=== PATIENT | female | born 1995 | race Caucasian/White ===

== ENCOUNTER → 2016-06-22 | Outpatient (CLI) | payer OTHER | LOC: FIMAGING 14:34 | PROVIDERS: ATTEND Nurse Practitioner Women's Health | DX: N63 Unspecified lump in breast (principal) ==

== ENCOUNTER 2018-04-10 11:55 | Inpatient (IN) | payer OTHER ==
[2018-04-10] MEDS ORDERED: MISOPROSTOL 200 MCG TAB PR PRN (12:37)
[2018-04-10] MEDS ORDERED: TERBUTALINE SULFATE 1 MG/ML VIAL IV PRN (12:37)
[2018-04-10] MEDS ORDERED: OXYTOCIN/RINGERS LACTATE 1,000 ML IV PRN (12:37)
[2018-04-10] MEDS ORDERED: OLIVE OIL 118 ML BTL MISC PRN (12:37)
[2018-04-10] MEDS ORDERED: LR 1,000 ML IV PRN (12:37)
[2018-04-10] MEDS ORDERED: LIDOCAINE 1% 300 MG/30 ML SDV SC PRN (12:37)
[2018-04-10] MEDS ORDERED: EPSOM SALT 454 GM TP PRN (12:37)
[2018-04-10] MEDS ORDERED: IBUPROFEN 600 MG TAB PO PRN (12:37)
[2018-04-10 14:29] LABS: PLATELET COUNT 96 10^3/uL (150-400)
[2018-04-10 14:36] LABS: PLATELET COUNT 96 10^3/uL (150-400)
[2018-04-10] MEDS ORDERED: CALCIUM GLUC 10% 1 GM/10 ML VIAL IVP PRN (14:37)
[2018-04-10] MEDS ORDERED: MAGNESIUM SULF 4 GM/WATER 100 ML IV ONE (14:37)
[2018-04-10] MEDS: hydrALAZINE 20 MG/ML VIAL IVP PRN ×2 (14:55→17:25)
[2018-04-10] MEDS ORDERED: Mag Sulf 500 ML IV SCH (15:00)
[2018-04-10] MEDS ORDERED: LR 500 ML IV PRN (15:01)
[2018-04-10] MEDS ORDERED: OXYTOCIN/RINGERS LACTATE 500 ML IV SCH (15:30)
[2018-04-10 16:56] LABS: PLATELET COUNT 102 10^3/uL (150-400)
[2018-04-10] MEDS ORDERED: LIDOCAINE 1% 300 MG/30 ML SDV ONE (19:16)
[2018-04-10] MEDS ORDERED: OLIVE OIL 118 ML BTL ONE (19:16)
[2018-04-10] MEDS ORDERED: OXYTOCIN 10 UNIT/ML VIAL ONE (19:17)
[2018-04-10] MEDS ORDERED: MISOPROSTOL 200 MCG TAB ONE (19:17)
[2018-04-10] MEDS ORDERED: TERBUTALINE SULFATE 1 MG/ML VIAL ONE (19:17)
--- NOTE | 2018-04-10 20:44 | PREANESOB ---
Obstetric Pre-Anesthesia Info - General Info NPO Start Time: 10:30 : 1 Para: 0 JUAN MANUEL: [birth year] Gestational Age: 39 week(s) and 0 day(s) - Info Status: Full Term - Labor Status Magnesium Sulfate in Use: Yes Labor Epidural: Proposed Anesthesia Allergies/Adverse Reactions: Allergy/AdvReac Type Severity Reaction Status Date / Time No Known Allergies Allergy Unverified 04/10/18 15:00 Visit Medications: Generic Name Dose Route Start Last Admin Trade Name Freq PRN Reason Stop Dose Admin Calcium Gluconate 1 gm 04/10/18 14:37 Calcium Gluconate IVP 10/07/18 14:36 PRN PRN Magnesium Toxicity Hydralazine HCl 5 mg 04/10/18 14:35 04/10/18 17:25 Apresoline IVP 10/07/18 14:34 5 mg Q6HRS PRN Administration SBP Greater Than 160 Lactated Ringer's 1,000 mls @ 0 mls/hr 04/10/18 12:37 04/10/18 15:22 Lr IV 04/11/18 12:36 1,000 mls PRN PRN Administration SEE PROTOCOL CONDITIONS Protocol Per Protocol Oxytocin/Lactated Ringer's 1,000 mls @ 125 mls/hr 04/10/18 12:37 Pitocin 20 Units/Lr (Premix) IV PRN PRN Post bleeding Lactated Ringer's 500 mls @ 500 mls/hr 04/10/18 15:01 Lr IV 04/11/18 15:01 PRN PRN Maternal Hypotension Magnesium Sulfate 500 mls @ 50 mls/hr 04/10/18 15:00 04/10/18 16:01 Magnesium Sulfate 20 Gm/ 500 Ml (Premix) IV 10/07/18 14:59 500 mls CONT DIANA Administration Oxytocin/Lactated Ringer's 500 mls @ 0 mls/hr 04/10/18 15:30 04/10/18 17:39 Pitocin 30 Units/Lr (Premix) IV 10/07/18 15:29 500 mls CONT DIANA Administration Protocol Per Protocol Ibuprofen 600 mg 04/10/18 12:37 Motrin PO ONCE PRN post , pain Lidocaine HCl 300 mg 04/10/18 12:37 Lidocaine Hcl 1% SC 10/07/18 12:36 ONCE PRN episiotomy Magnesium Sulfate 454 gm 04/10/18 12:37 Epsom Salt TP 10/07/18 12:36 Q1H PRN perineal discomfort Misoprostol 800 - 1,000 mcg 04/10/18 12:37 Cytotec NV ONCE PRN Vaginal Atony/Bleeding [place] Oil 118 ml 04/10/18 12:37 Sweet Oil MISC 10/07/18 12:36 ONCE PRN perineal massage Terbutaline Sulfate 0.25 mg 04/10/18 12:37 Brethine IV 10/07/18 12:36 ONCE PRN Tachysystole Discontinued Medications Generic Name Dose Route Start Last Admin Trade Name Andreaq PRN Reason Stop Dose Admin Magnesium Sulfate 100 mls @ 200 mls/hr 04/10/18 14:37 04/10/18 15:22 Magnesium Sulf 4 Gm (Premix) IV 04/10/18 15:06 100 mls ONCE ONE Administration Lidocaine HCl Confirm 04/10/18 19:16 Lidocaine Hcl 1% Administered 04/10/18 19:17 Dose 300 mg .ROUTE .STK-MED ONE Misoprostol Confirm 04/10/18 19:17 Cytotec Administered 04/10/18 19:18 Dose 1,000 mcg .ROUTE .STK-MED ONE [place] Oil Confirm 04/10/18 19:16 Sweet Oil Administered 04/10/18 19:17 Dose 118 ml .ROUTE .STK-MED ONE Oxytocin Confirm 04/10/18 19:17 Pitocin Administered 04/10/18 19:18 Dose 40 unit .ROUTE .STK-MED ONE Terbutaline Sulfate Confirm 04/10/18 19:17 Brethine Administered 04/10/18 19:18 Dose 1 mg .ROUTE .STK-MED ONE - Anesthesia History Response to Local Anesthetics: Not Applicable, Normal Anesthesia & Operative History: No Prior Problems - Vital Signs Latest Vital Signs (Nursing): Temp Pulse Resp BP Pulse Ox 173/102 H 04/10/18 17:25 Height/Weight (Nursing): Height 165.1 cm Weight 68.492 kg - Focused Exam Neck exam: FROM Mallampati Score: Class 2 Mouth exam: normal dental/mouth exam Pulmonary: no respiratory distress Cardiovascular: regular rate and rhythym Labs: 04/10/18 16:40 04/10/18 16:40 Patient ABO/Rh O POSITIVE 04/10/18 13:35 Uric Acid 5.4 mg/dL (2.5-6.8) 04/10/18 16:40 Total Bilirubin 0.2 mg/dL (0.1-1.4) 04/10/18 13:35 Conjugated Bilirubin 0.1 mg/dL (0.0-0.5) 04/10/18 13:35 Unconjugated Bilirubin 0.1 mg/dL (0.0-1.1) 04/10/18 13:35 AST 34 IU/L (14-46) 04/10/18 16:40 ALT 36 IU/L (9-52) 04/10/18 16:40 Lactate Dehydrogenase 570 IU/L (313-618) 04/10/18 16:40 - Plan Anesthetic Plan: ADRIÁN Consent Signed and on Chart: Yes Patient/Guardian Understands and Agrees to Plan: Yes
[2018-04-10 20:46] LABS: PLATELET COUNT 100 10^3/uL (150-400)
[2018-04-10] MEDS ORDERED: PHENYLEPHRINE HCL 100 MCG/ML SYR ONE (20:49)
[2018-04-10] MEDS ORDERED: BUPIVACAINE 0.25% 10 ML SDV ONE (20:49)
[2018-04-10] MEDS ORDERED: PHENYLEPHRINE HCL 100 MCG/ML SYR IVP PRN (21:36)
[2018-04-10] MEDS ORDERED: METOCLOPRAMIDE 10 MG/2 ML VIAL IVP PRN (21:36)
[2018-04-10] MEDS ORDERED: NALOXONE HCL 0.4 MG/ML INJ IVP PRN (21:36)
[2018-04-10] MEDS ORDERED: ONDANSETRON 4 MG/2 ML VIAL IVP PRN (21:36)
[2018-04-10] MEDS ORDERED: fentaNYL 2MCG/ML/BUP 0.1% RTU 100 ML EP SCH (22:00)
[2018-04-10] MEDS ORDERED: LR 500 ML IV SCH (22:00)
--- NOTE | 2018-04-11 00:18 | OBPROG ---
Labor Progress Note Assessment/Plan: Assessment: IUP [id number] preeclampsia with severe features UOP borderline but clear plts stable, other LFTs normal ADRIÁN with good pain control, difficult with ADRIÁN placement with hypotension/ N/V Plan: Cont pitocin and now ROM 23:46, slow change to 3/90/-2 04/11/18 00:04 Subjective/Intrapartum Course: 04/11/18 00:18 Pt doing ok - relatively comf with ADRIÁN....Got ADRIÁN for urethral irritation. Had very difficult insertion with terrible pain even with lidocaine injection - got hypotension and emesis. resting now. has mild MCCRAY and just had nausea and emesis. hot with magnesium. happy about plts. Objective: 04/10/18 20:43 04/10/18 20:43 Patient ABO/Rh O POSITIVE 04/10/18 13:35 Uric Acid 5.6 mg/dL (2.5-6.8) 04/10/18 20:43 Total Bilirubin 0.2 mg/dL (0.1-1.4) 04/10/18 13:35 Conjugated Bilirubin 0.1 mg/dL (0.0-0.5) 04/10/18 13:35 Unconjugated Bilirubin 0.1 mg/dL (0.0-1.1) 04/10/18 13:35 AST 36 IU/L (14-46) 04/10/18 20:43 ALT 37 IU/L (9-52) 04/10/18 20:43 Lactate Dehydrogenase 560 IU/L (313-618) 04/10/18 20:43 Temp Pulse Resp BP Pulse Ox 173/102 H 04/10/18 17:25 - SVE Dilation (cm): 3 Effacement (%): 90 Station: -2 Membranes: AROM (at 23:46) Amniotic Fluid Color: Clear - Contraction Pattern Assessment Current Contraction Pattern: Regular (q 3-4 min on pit 14 mu/min) - FHR Assessment [place] FHR (bpm): 120 FHR Pattern Variability: Moderate FHR Category: 1 - Procedures Non-surgical Procedures: Amniotomy - AP Antepartum Course: 04/11/18 00:29 uncomplicated until 04/07 with borderline b/p elevation with labs normal except plts 106 - Physical Exam General Appearance: WD/WN, no apparent distress Abdomen: non-tender Extremities: non-tender, pedal edema (minimal) Skin: normal color, warm/dry Neuro/Psych: no motor/sensory deficits, alert Oxytocin Orders Assessment - Pre-Induction/Augmentation Assessment Gestational Age: 39 week(s) and 0 day(s) ICD10 Worksheet Patient Problems: Problems Problem Status Onset Pre-eclampsia, severe Acute
[2018-04-11 01:12] LABS: PLATELET COUNT 107 10^3/uL (150-400)
--- NOTE | 2018-04-11 03:02 | OBPROG ---
Labor Progress Note Assessment/Plan: Assessment: IUP [id number] preeclampsia with severe features, BP up to 170s/100s, now 140s/90s UOP normal plts stable, other LFTs normal - UA 5.9 ADRIÁN with fair pain control - will do several boluses AROM, clear fluid, GBS- Plan: Cont pitocin, cx with slow change in latent labor 04/11/18 00:04 04/11/18 02:58 Subjective/Intrapartum Course: 04/11/18 00:18 Pt doing ok - relatively comf with ADRIÁN....Got ADRIÁN for urethral irritation. Had very difficult insertion with terrible pain even with lidocaine injection - got hypotension and emesis. resting now. has mild MCCRAY and just had nausea and emesis. hot with magnesium. happy about plts. 04/11/18 03:00 Pt uncomfortable with feeling more pressure. Irritated by many body symptoms / catheter/ pulse ox etc. Will push bolus button. denies MCCRAY, nausea after lying for exam. cx now 3-4/95/0 station. nieves bulb pushed above head Objective: 04/11/18 00:45 04/11/18 00:45 Patient ABO/Rh O POSITIVE 04/10/18 13:35 Uric Acid 5.9 mg/dL (2.5-6.8) 04/11/18 00:45 Total Bilirubin 0.3 mg/dL (0.1-1.4) 04/11/18 00:45 Conjugated Bilirubin 0.2 mg/dL (0.0-0.5) 04/11/18 00:45 Unconjugated Bilirubin 0.1 mg/dL (0.0-1.1) 04/11/18 00:45 AST 38 IU/L (14-46) 04/11/18 00:45 ALT 38 IU/L (9-52) 04/11/18 00:45 Lactate Dehydrogenase 588 IU/L (313-618) 04/11/18 00:45 Temp Pulse Resp BP Pulse Ox 173/102 H 04/10/18 17:25 - SVE Dilation (cm): 3 Effacement (%): 100 Station: 0 Membranes: AROM (at 23:46) Amniotic Fluid Color: Clear - Contraction Pattern Assessment Current Contraction Pattern: Regular (q 3-4 min on pit 18 mu/min) - FHR Assessment [place] FHR (bpm): 120 FHR Pattern Variability: Moderate FHR Category: 1 - Procedures Non-surgical Procedures: Amniotomy - AP Antepartum Course: 04/11/18 00:29 uncomplicated until 04/07 with borderline b/p elevation with labs normal except plts 106 Oxytocin Orders Assessment - Pre-Induction/Augmentation Assessment Gestational Age: 39 week(s) and 0 day(s) ICD10 Worksheet Patient Problems: Problems Problem Status Onset Pre-eclampsia, severe Acute
--- NOTE | 2018-04-11 06:11 | OBPROG ---
Labor Progress Note Assessment/Plan: Assessment: IUP [id number] preeclampsia with severe features, BP up to 170s/100s, now 120s-140s/80s-90s UOP normal plts stable, other LFTs normal - UA 5.9 -LAB DRAW NOW ADRIÁN with fair pain control AROM, clear fluid, GBS- IUPC placed - on pit - ctxns inadeq Plan: Cont pitocin, cx with slow change in latent labor, now 3-4/100/0 04/11/18 00:04 04/11/18 02:58 04/11/18 06:05 Subjective/Intrapartum Course: 04/11/18 00:18 Pt doing ok - relatively comf with ADRIÁN....Got ADRIÁN for urethral irritation. Had very difficult insertion with terrible pain even with lidocaine injection - got hypotension and emesis. resting now. has mild MCCRAY and just had nausea and emesis. hot with magnesium. happy about plts. 04/11/18 03:00 Pt uncomfortable with feeling more pressure. Irritated by many body symptoms / catheter/ pulse ox etc. Will push bolus button. denies MCCRAY, nausea after lying for exam. cx now 3-4/95/0 station. nieves bulb pushed above head 04/11/18 06:07 Pt doing ok - sleeping after Zofran and ADRIÁN boluses. Ctxns hard to monitor on 22 pit - placed IUPC - ctxns inadeq. Cx minimal change 3-4/100/0. fluid still clear fluid. good UOP, no MCCRAY Objective: 04/11/18 00:45 04/11/18 00:45 Patient ABO/Rh O POSITIVE 04/10/18 13:35 Uric Acid 5.9 mg/dL (2.5-6.8) 04/11/18 00:45 Total Bilirubin 0.3 mg/dL (0.1-1.4) 04/11/18 00:45 Conjugated Bilirubin 0.2 mg/dL (0.0-0.5) 04/11/18 00:45 Unconjugated Bilirubin 0.1 mg/dL (0.0-1.1) 04/11/18 00:45 AST 38 IU/L (14-46) 04/11/18 00:45 ALT 38 IU/L (9-52) 04/11/18 00:45 Lactate Dehydrogenase 588 IU/L (313-618) 04/11/18 00:45 Temp Pulse Resp BP Pulse Ox 173/102 H 04/10/18 17:25 - SVE Dilation (cm): 3 (3-4) Effacement (%): 100 Station: 0 Membranes: AROM (at 23:46) Amniotic Fluid Color: Clear - Contraction Pattern Assessment Current Contraction Pattern: Regular (q 4 min on 22 mu/min pit) - FHR Assessment [place] FHR (bpm): 120 FHR Pattern Variability: Moderate FHR Category: 1 - Procedures Non-surgical Procedures: Amniotomy - AP Antepartum Course: 04/11/18 00:29 uncomplicated until 04/07 with borderline b/p elevation with labs normal except plts 106 Oxytocin Orders Assessment - Pre-Induction/Augmentation Assessment Gestational Age: 39 week(s) and 0 day(s) ICD10 Worksheet Patient Problems: Problems Problem Status Onset Pre-eclampsia, severe Acute
[2018-04-11 06:32] LABS: PLATELET COUNT 120 10^3/uL (150-400)
--- NOTE | 2018-04-11 07:24 | GHP ---
DATE OF ADMISSION: 04/10/2018 The patient was seen and approximately 45 minutes was spent in evaluation of the patient and discussion of management late in the morning on 04/10/18 HISTORY: Upon presentation, the patient is a 22-year-old, G1, P0, at 39 weeks' gestation with an estimated due date of 04/17, established by a 7 week ultrasound as periods were irregular after discontinuing Depo-Provera. The patient was seen at the office on the for followup of blood pressures and was noted to have blood pressures in the 130s over 80s with 3+ proteinuria. This patient was sent to Labor and Delivery for evaluation. Upon labor and Delivery, the blood pressures were markedly higher in the 150s to 170s range over 90s to 105. The patient was denying a headache or nausea and vomiting, but had noticed that she was a little more puffy on the day prior to admission and had slept in her support stockings. The patient had previously been seen at [facility] on 04/07 at which time her blood pressure was 124/88 and she had 2+ proteinuria at that time. A [facility] lab panel was performed then and was normal except for platelet levels that were 106,000. Upon initial presentation, the patient had laboratory values that were done and the platelet level had dropped to 96,000. Other lab testing was normal except for the PDC ratio was 2.6. Uric acid was 5.6. In light of the elevated blood pressures and proteinuria with thrombocytopenia, the patient was advised that she was preeclamptic with severe features and needed to be managed with magnesium sulfate and induced. monitoring was reassuring with category 1 tracing. The patient was thoroughly counseled about the risk of what we were finding with preeclampsia and the need to control blood pressures and proceed with delivery. She asked appropriate questions and symptoms were discussed to expect on the magnesium. CURRENT HISTORY: The patient has been followed with [facility] since first trimester. Dating was established by a 7 week ultrasound. The patient had a relatively low risk until 04/07. 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 The patient was having really bad migraines in mid February and she was evaluated at [facility]. Her blood pressure was 104/62, and she had evaluation with heart tones and was reassured. She was advised to increase her fluid intake. The patient was not noticing edema at that time. OBSTETRIC LABS: Maternal blood type O positive with negative antibody screen. RPR nonreactive. Rubella immune. Hepatitis B surface antigen negative. HIV negative. Cystic fibrosis, SMA, fragile X all negative. Thyroid testing all negative. Varicella titers were immune. Parvovirus showed nonimmune. Urinalysis and culture were negative. Verifi testing was negative with negative MSAFP. 1-hour Glucola was normal. Hematocrit revealed anemia at 31% at 28 weeks and the patient has been on iron. GBS culture was negative. PAST MEDICAL HISTORY: Negative except for migraines. PAST SURGICAL HISTORY: Left breast lumpectomy in September of 2016 which was benign. Odontectomy in 2011. In August of 2016, tonsils removed. PAST OBSTETRIC HISTORY: Negative. ALLERGIES: The patient has no known drug allergies. CURRENT MEDICATIONS: Only vitamins and iron. SOCIAL HISTORY: The patient does report smoking in the past and social alcohol , which she stopped with the positive test. The patient also reported marijuana in the past and last used on July 28, 2017. Patient is and lives with her , Reynaldo. PHYSICAL EXAM: The patient is a well-developed, well-nourished, white female, in no physical distress upon admission. The patient is quiet but seems to understand what she is being educated about preeclampsia. The patient's vital signs as noted above range 150s up to 170s over 90s to 107. The patient is given hydralazine IV to bring blood pressures down as well as starting the magnesium sulfate. PHYSICAL EXAMINATION: VITALS: The patient is afebrile. LUNGS: Clear to auscultation bilaterally. CARDIOVASCULAR: Regular rate and rhythm. heart tones revealed a category 1 tracing with a baseline in the 120s, good variability and accelerations. No decelerations noted. Contractions were noted initially every 4-5 minutes, but the patient was not able to feel these at all. EXTREMITIES: Only mild edema, but has on compression stockings. DTRs 1 to 2+ in the lower extremities. No clonus noted. BIOLOGY INTERN: Pelvic exam performed and the cervix initially was 1-2 cm dilated, 90% effaced, at -2 station. ASSESSMENT: Intrauterine at 39 weeks with preeclampsia with severe features with hypertension and proteinuria as well as low platelets. With the drop recently noted in platelets, PIH labs will be checked every 4 hours initially to ensure that the patient can get an epidural placed as timely as possible. The patient currently is having contractions but not palpating them but has a good favorable cervix. The patient was advised to start Pitocin for induction. GBS culture negative. The patient is initiated on magnesium sulfate and Pitocin is started for induction. Labs scheduled to be drawn every 4 hours. /[id number]/MODL MTDD
--- NOTE | 2018-04-11 08:36 | OBPROG ---
Labor Progress Note Assessment/Plan: Assessment: Plan: Subjective/Intrapartum Course: 04/11/18 00:18 Pt doing ok - relatively comf with ADRIÁN....Got ADRIÁN for urethral irritation. Had very difficult insertion with terrible pain even with lidocaine injection - got hypotension and emesis. resting now. has mild MCCRAY and just had nausea and emesis. hot with magnesium. happy about plts. 04/11/18 03:00 Pt uncomfortable with feeling more pressure. Irritated by many body symptoms / catheter/ pulse ox etc. Will push bolus button. denies MCCRAY, nausea after lying for exam. cx now 3-4/95/0 station. nieves bulb pushed above head 04/11/18 06:07 Pt doing ok - sleeping after Zofran and ADRIÁN boluses. Ctxns hard to monitor on 22 pit - placed IUPC - ctxns inadeq. Cx minimal change 3-4/100/0. fluid still clear fluid. good UOP, no MCCRAY 04/11/18 08:33 patient comfortable. does not tolerate exams well and flinches with touching leg. has nausea. iupc in place. pitocin is at 30,. bp stable. will continue close observation. will stop pit to see if it will be more receptive to pitocin after a break. low urine output. will give fluid bolus 250 cc. Objective: 04/11/18 06:00 04/11/18 06:00 Patient ABO/Rh O POSITIVE 04/10/18 13:35 Uric Acid 6.3 mg/dL (2.5-6.8) 04/11/18 06:00 Total Bilirubin 0.3 mg/dL (0.1-1.4) 04/11/18 00:45 Conjugated Bilirubin 0.2 mg/dL (0.0-0.5) 04/11/18 00:45 Unconjugated Bilirubin 0.1 mg/dL (0.0-1.1) 04/11/18 00:45 AST 39 IU/L (14-46) 04/11/18 06:00 ALT 35 IU/L (9-52) 04/11/18 06:00 Lactate Dehydrogenase 605 IU/L (313-618) 04/11/18 06:00 Temp Pulse Resp BP Pulse Ox 173/102 H 04/10/18 17:25 - SVE Dilation (cm): 4 Effacement (%): 90 Station: -2 Membranes: AROM (at 23:46) Amniotic Fluid Color: Clear - Contraction Pattern Assessment Current Contraction Pattern: Regular (q 4 min on 22 mu/min pit) - Procedures Non-surgical Procedures: Amniotomy - AP Antepartum Course: 04/11/18 00:29 uncomplicated until 04/07 with borderline b/p elevation with labs normal except plts 106 Oxytocin Orders Assessment - Pre-Induction/Augmentation Assessment Gestational Age: 39 week(s) and 0 day(s) ICD10 Worksheet Patient Problems: Problems Problem Status Onset Pre-eclampsia, severe Acute
--- NOTE | 2018-04-11 11:27 | OBPROG ---
Labor Progress Note Assessment/Plan: Assessment: Plan: Subjective/Intrapartum Course: 04/11/18 00:18 Pt doing ok - relatively comf with ADRIÁN....Got ADRIÁN for urethral irritation. Had very difficult insertion with terrible pain even with lidocaine injection - got hypotension and emesis. resting now. has mild MCCRAY and just had nausea and emesis. hot with magnesium. happy about plts. 04/11/18 03:00 Pt uncomfortable with feeling more pressure. Irritated by many body symptoms / catheter/ pulse ox etc. Will push bolus button. denies MCCRAY, nausea after lying for exam. cx now 3-4/95/0 station. nieves bulb pushed above head 04/11/18 06:07 Pt doing ok - sleeping after Zofran and ADRIÁN boluses. Ctxns hard to monitor on 22 pit - placed IUPC - ctxns inadeq. Cx minimal change 3-4/100/0. fluid still clear fluid. good UOP, no MCCRAY 04/11/18 08:33 patient comfortable. does not tolerate exams well and flinches with touching leg. has nausea. iupc in place. pitocin is at 30,. bp stable. will continue close observation. will stop pit to see if it will be more receptive to pitocin after a break. low urine output. will give fluid bolus 250 cc. 04/11/18 11:23 pitocin was off for an hour and a half. contractions completely stopped. pitocin restarted at 15 mu. status reassuring. urine output has improved. discussed rationale for stopping pit and restarting with patient and her . discussed importance of change positions. discussed risks of post hemorrhage with prolonged high dose pitocin and magnesium. discussed indications for c section. patient declines c section now. will continue close observation. 04/11/18 11:26 patient delivered baby. placenta is still not delivered. given 200 mch po cytotec. will manage expectantly. Objective: 04/11/18 06:00 04/11/18 06:00 Patient ABO/Rh O POSITIVE 04/10/18 13:35 Uric Acid 6.3 mg/dL (2.5-6.8) 04/11/18 06:00 Total Bilirubin 0.3 mg/dL (0.1-1.4) 04/11/18 00:45 Conjugated Bilirubin 0.2 mg/dL (0.0-0.5) 04/11/18 00:45 Unconjugated Bilirubin 0.1 mg/dL (0.0-1.1) 04/11/18 00:45 AST 39 IU/L (14-46) 04/11/18 06:00 ALT 35 IU/L (9-52) 04/11/18 06:00 Lactate Dehydrogenase 605 IU/L (313-618) 04/11/18 06:00 Temp Pulse Resp BP Pulse Ox 173/102 H 04/10/18 17:25 - SVE Membranes: AROM (at 23:46) Amniotic Fluid Color: Clear - Contraction Pattern Assessment Current Contraction Pattern: Regular (q 4 min on 22 mu/min pit) - Procedures Non-surgical Procedures: Amniotomy - AP Antepartum Course: 04/11/18 00:29 uncomplicated until 04/07 with borderline b/p elevation with labs normal except plts 106 Oxytocin Orders Assessment - Pre-Induction/Augmentation Assessment Gestational Age: 39 week(s) and 0 day(s) ICD10 Worksheet Patient Problems: Problems Problem Status Onset Pre-eclampsia, severe Acute
[2018-04-11 12:33] LABS: PLATELET COUNT 113 10^3/uL (150-400)
[2018-04-11] MEDS ORDERED: PROPRANOLOL HCL 1 MG/ML VIAL IV ONE (12:33)
--- NOTE | 2018-04-11 15:59 | OBPROG ---
Labor Progress Note Assessment/Plan: Assessment: Plan: Subjective/Intrapartum Course: 04/11/18 00:18 Pt doing ok - relatively comf with ADRIÁN....Got ADRIÁN for urethral irritation. Had very difficult insertion with terrible pain even with lidocaine injection - got hypotension and emesis. resting now. has mild MCCRAY and just had nausea and emesis. hot with magnesium. happy about plts. 04/11/18 03:00 Pt uncomfortable with feeling more pressure. Irritated by many body symptoms / catheter/ pulse ox etc. Will push bolus button. denies CMCRAY, nausea after lying for exam. cx now 3-4/95/0 station. nieves bulb pushed above head 04/11/18 06:07 Pt doing ok - sleeping after Zofran and ADRIÁN boluses. Ctxns hard to monitor on 22 pit - placed IUPC - ctxns inadeq. Cx minimal change 3-4/100/0. fluid still clear fluid. good UOP, no MCCRAY 04/11/18 08:33 patient comfortable. does not tolerate exams well and flinches with touching leg. has nausea. iupc in place. pitocin is at 30,. bp stable. will continue close observation. will stop pit to see if it will be more receptive to pitocin after a break. low urine output. will give fluid bolus 250 cc. 04/11/18 11:23 pitocin was off for an hour and a half. contractions completely stopped. pitocin restarted at 15 mu. status reassuring. urine output has improved. discussed rationale for stopping pit and restarting with patient and her . discussed importance of change positions. discussed risks of post hemorrhage with prolonged high dose pitocin and magnesium. discussed indications for c section. patient declines c section now. will continue close observation. 04/11/18 15:56 patient resting. prior note about delivery was written on the wrong patient. patient was given propranolol and pitocin is at 28. sve 4/80/0. contractions had been regular but have spaced out again. discussed proceeding with c section if no cervical change in the next few hours Objective: 04/11/18 12:10 04/11/18 12:10 Patient ABO/Rh O POSITIVE 04/10/18 13:35 Uric Acid 6.5 mg/dL (2.5-6.8) 04/11/18 12:10 Total Bilirubin 0.4 mg/dL (0.1-1.4) 04/11/18 12:10 Conjugated Bilirubin 0.2 mg/dL (0.0-0.5) 04/11/18 12:10 Unconjugated Bilirubin 0.2 mg/dL (0.0-1.1) 04/11/18 12:10 AST 38 IU/L (14-46) 04/11/18 12:10 ALT 33 IU/L (9-52) 04/11/18 12:10 Lactate Dehydrogenase 661 IU/L (313-618) H 04/11/18 12:10 Temp Pulse Resp BP Pulse Ox 83 135/85 H 04/11/18 12:49 04/11/18 12:49 - SVE Dilation (cm): 4 Effacement (%): 80 Station: 0 Membranes: AROM (at 23:46) Amniotic Fluid Color: Clear - Contraction Pattern Assessment Current Contraction Pattern: Regular (q 4 min on 22 mu/min pit) - Procedures Non-surgical Procedures: Amniotomy - AP Antepartum Course: 04/11/18 00:29 uncomplicated until 04/07 with borderline b/p elevation with labs normal except plts 106 Oxytocin Orders Assessment - Pre-Induction/Augmentation Assessment Gestational Age: 39 week(s) and 0 day(s) ICD10 Worksheet Patient Problems: Problems Problem Status Onset Pre-eclampsia, severe Acute
[2018-04-11] MEDS ORDERED: METHYLERGONOVINE MAL 0.2 MG/ML INJ ONE (19:13)
[2018-04-11] MEDS ORDERED: HEMABATE 250 MCG/1 ML AMP IM ONE (19:13)
[2018-04-11] MEDS ORDERED: CEFAZOLIN 2 GM/DEXTROSE/100 ML BAG IV ONE (19:23)
[2018-04-11] MEDS ORDERED: LIDO/EPI 2% **for epidural** 20 ML SDV ONE (19:30)
[2018-04-11 19:42] LABS: PLATELET COUNT 131 10^3/uL (150-400)
--- NOTE | 2018-04-11 19:52 | OBPROG ---
Labor Progress Note Assessment/Plan: Assessment: Plan: Subjective/Intrapartum Course: 04/11/18 00:18 Pt doing ok - relatively comf with ADRIÁN....Got ADRIÁN for urethral irritation. Had very difficult insertion with terrible pain even with lidocaine injection - got hypotension and emesis. resting now. has mild MCCRAY and just had nausea and emesis. hot with magnesium. happy about plts. 04/11/18 03:00 Pt uncomfortable with feeling more pressure. Irritated by many body symptoms / catheter/ pulse ox etc. Will push bolus button. denies MCCRAY, nausea after lying for exam. cx now 3-4/95/0 station. nieves bulb pushed above head 04/11/18 06:07 Pt doing ok - sleeping after Zofran and ADRIÁN boluses. Ctxns hard to monitor on pit - placed IUPC - ctxns inadeq. Cx minimal change 3-4/100/0. fluid still clear fluid. good UOP, no MCCRAY 04/11/18 08:33 patient comfortable. does not tolerate exams well and flinches with touching leg. has nausea. iupc in place. pitocin is at 30,. bp stable. will continue close observation. will stop pit to see if it will be more receptive to pitocin after a break. low urine output. will give fluid bolus 250 cc. 04/11/18 11:23 pitocin was off for an hour and a half. contractions completely stopped. pitocin restarted at 15 mu. status reassuring. urine output has improved. discussed rationale for stopping pit and restarting with patient and her . discussed importance of change positions. discussed risks of post hemorrhage with prolonged high dose pitocin and magnesium. discussed indications for c section. patient declines c section now. will continue close observation. 04/11/18 15:56 patient resting. prior note about delivery was written on the wrong patient. patient was given propranolol and pitocin is at 28. sve 4/80/0. contractions had been regular but have spaced out again. discussed proceeding with c section if no cervical change in the next few hours 04/11/18 19:48 patient has not changed her cervix. long discussion with patient and her about next steps. discussed increased risk of pp hemorrhage and being out of options for getting adequate contractions. agreeable to proceeding with pltcs. pitocin off. anesthesia notified. status reassuring. due to another patient needing a c section at this time we will just continue close observation until we are finished and then proceed with c section. Objective: 04/11/18 19:30 04/11/18 12:10 Patient ABO/Rh O POSITIVE 04/10/18 13:35 Uric Acid 6.5 mg/dL (2.5-6.8) 04/11/18 12:10 Total Bilirubin 0.4 mg/dL (0.1-1.4) 04/11/18 12:10 Conjugated Bilirubin 0.2 mg/dL (0.0-0.5) 04/11/18 12:10 Unconjugated Bilirubin 0.2 mg/dL (0.0-1.1) 04/11/18 12:10 AST 38 IU/L (14-46) 04/11/18 12:10 ALT 33 IU/L (9-52) 04/11/18 12:10 Lactate Dehydrogenase 661 IU/L (313-618) H 04/11/18 12:10 Temp Pulse Resp BP Pulse Ox 36.6 C 96 20 140/87 H 96 04/11/18 19:01 04/11/18 19:01 04/11/18 19:01 04/11/18 19:01 04/11/18 19:01 - SVE Dilation (cm): 4 Effacement (%): 80 Station: 0 Membranes: AROM (at 23:46) Amniotic Fluid Color: Clear - Contraction Pattern Assessment Current Contraction Pattern: Regular (q 4 min on 22 mu/min pit) - Procedures Non-surgical Procedures: Amniotomy - AP Antepartum Course: 04/11/18 00:29 uncomplicated until 04/07 with borderline b/p elevation with labs normal except plts 106 Oxytocin Orders Assessment - Pre-Induction/Augmentation Assessment Gestational Age: 39 week(s) and 0 day(s) ICD10 Worksheet Patient Problems: Problems Problem Status Onset Pre-eclampsia, severe Acute
[2018-04-11] MEDS ORDERED: ONDANSETRON 4 MG/2 ML VIAL IVP PRN (22:10)
--- NOTE | 2018-04-11 22:12 | POSTANESTH ---
Post Anesthetic Evaluation Cardiovascular Status: Normal, Stable Respiratory Status: Normal, Stable Level of Consciousness/Mental Status: Can Participate in Eval Pain Control: Adequate, Prn Tx Ordered Nausea/Vomiting Control: Adequate, Prn Tx Ordered Complications Possibly Related to Anesthesia: None Noted
[2018-04-11] MEDS ORDERED: LR 500 ML IV ONE ×2 (22:23→22:26)
[2018-04-11] MEDS ORDERED: ceFAZolin 2 GM/DEXTROSE 100 ML IV ONE ×2 (22:23→22:26)
[2018-04-11] MEDS ORDERED: LR 1,000 ML IV SCH ×2 (22:30)
--- NOTE | 2018-04-11 22:35 | OBPROG ---
Labor Progress Note Assessment/Plan: Assessment: Plan: Subjective/Intrapartum Course: 04/11/18 00:18 Pt doing ok - relatively comf with ADRIÁN....Got ADRIÁN for urethral irritation. Had very difficult insertion with terrible pain even with lidocaine injection - got hypotension and emesis. resting now. has mild MCCRAY and just had nausea and emesis. hot with magnesium. happy about plts. 04/11/18 03:00 Pt uncomfortable with feeling more pressure. Irritated by many body symptoms / catheter/ pulse ox etc. Will push bolus button. denies MCCRAY, nausea after lying for exam. cx now 3-4/95/0 station. nieves bulb pushed above head 04/11/18 06:07 Pt doing ok - sleeping after Zofran and ADRIÁN boluses. Ctxns hard to monitor on pit - placed IUPC - ctxns inadeq. Cx minimal change 3-4/100/0. fluid still clear fluid. good UOP, no MCCRAY 04/11/18 08:33 patient comfortable. does not tolerate exams well and flinches with touching leg. has nausea. iupc in place. pitocin is at 30,. bp stable. will continue close observation. will stop pit to see if it will be more receptive to pitocin after a break. low urine output. will give fluid bolus 250 cc. 04/11/18 11:23 pitocin was off for an hour and a half. contractions completely stopped. pitocin restarted at 15 mu. status reassuring. urine output has improved. discussed rationale for stopping pit and restarting with patient and her . discussed importance of change positions. discussed risks of post hemorrhage with prolonged high dose pitocin and magnesium. discussed indications for c section. patient declines c section now. will continue close observation. 04/11/18 15:56 patient resting. prior note about delivery was written on the wrong patient. patient was given propranolol and pitocin is at 28. sve 4/80/0. contractions had been regular but have spaced out again. discussed proceeding with c section if no cervical change in the next few hours 04/11/18 19:48 patient has not changed her cervix. long discussion with patient and her about next steps. discussed increased risk of pp hemorrhage and being out of options for getting adequate contractions. agreeable to proceeding with pltcs. pitocin off. anesthesia notified. status reassuring. due to another patient needing a c section at this time we will just continue close observation until we are finished and then proceed with c section. 04/11/18 22:34 patient is being transported back to the OR for delivery. status is reassuring. Objective: 04/11/18 19:30 04/11/18 12:10 Patient ABO/Rh O POSITIVE 04/10/18 13:35 Uric Acid 6.5 mg/dL (2.5-6.8) 04/11/18 12:10 Total Bilirubin 0.4 mg/dL (0.1-1.4) 04/11/18 12:10 Conjugated Bilirubin 0.2 mg/dL (0.0-0.5) 04/11/18 12:10 Unconjugated Bilirubin 0.2 mg/dL (0.0-1.1) 04/11/18 12:10 AST 38 IU/L (14-46) 04/11/18 12:10 ALT 33 IU/L (9-52) 04/11/18 12:10 Lactate Dehydrogenase 661 IU/L (313-618) H 04/11/18 12:10 Temp Pulse Resp BP Pulse Ox 36.6 C 96 20 140/87 H 96 04/11/18 19:01 04/11/18 19:01 04/11/18 19:01 04/11/18 19:01 04/11/18 19:01 - SVE Membranes: AROM (at 23:46) Amniotic Fluid Color: Clear - Contraction Pattern Assessment Current Contraction Pattern: Regular (q 4 min on 22 mu/min pit) - Procedures Non-surgical Procedures: Amniotomy - AP Antepartum Course: 04/11/18 00:29 uncomplicated until 04/07 with borderline b/p elevation with labs normal except plts 106 Oxytocin Orders Assessment - Pre-Induction/Augmentation Assessment Gestational Age: 39 week(s) and 0 day(s) ICD10 Worksheet Patient Problems: Problems Problem Status Onset Pre-eclampsia, severe Acute
[2018-04-11] MEDS ORDERED: ONDANSETRON 4 MG/2 ML VIAL ONE (22:46)
[2018-04-11] MEDS ORDERED: OXYTOCIN 10 UNIT/ML VIAL ONE (22:52)
[2018-04-11] MEDS ORDERED: MIDAZOLAM 2 MG/2 ML VIAL ONE (22:58)
[2018-04-11] MEDS ORDERED: KETAMINE 500 MG/10 ML VIAL ONE (23:00)
[2018-04-11] MEDS ORDERED: clonIDINE 1 MG/10 ML VIAL EP ONE ×2 (23:04→23:05)
[2018-04-11] MEDS ORDERED: morphINE PF 5 MG/10 ML INJ ONE (23:32)
--- NOTE | 2018-04-11 23:45 | OBDEL ---
Info Type: Primary Presentation at Delivery: Vertex L&D Analgesia/Anesthesia Type: Epidural GBS+: No Intrapartum Medications: Generic Name Dose Route Start Last Admin Trade Name Freq PRN Reason Stop Dose Admin Hydralazine HCl 5 mg 04/10/18 14:35 04/10/18 17:25 Apresoline IVP 10/07/18 14:34 5 mg Q6HRS PRN Administration SBP Greater Than 160 Magnesium Sulfate 500 mls @ 50 mls/hr 04/10/18 15:00 04/10/18 16:01 Magnesium Sulfate 20 Gm/ 500 Ml (Premix) IV 10/07/18 14:59 500 mls CONT DIANA Administration Oxytocin/Lactated Ringer's 500 mls @ 0 mls/hr 04/10/18 15:30 04/10/18 17:39 Pitocin 30 Units/Lr (Premix) IV 10/07/18 15:29 500 mls CONT DIANA Administration Protocol Per Protocol Discontinued Medications Generic Name Dose Route Start Last Admin Trade Name Frecatarina PRN Reason Stop Dose Admin Lactated Ringer's 1,000 mls @ 0 mls/hr 04/10/18 12:37 04/10/18 15:22 Lr IV 04/11/18 12:36 1,000 mls PRN PRN Administration SEE PROTOCOL CONDITIONS Protocol Per Protocol Magnesium Sulfate 100 mls @ 200 mls/hr 04/10/18 14:37 04/10/18 15:22 Magnesium Sulf 4 Gm (Premix) IV 04/10/18 15:06 100 mls ONCE ONE Administration Ondansetron HCl 4 mg 04/10/18 21:36 04/11/18 05:07 Zofran IVP 04/11/18 21:35 4 mg Q4HRS PRN Administration Nausea/Vomiting, Can't Take PO Propranolol HCl 2 mg 04/11/18 12:33 04/11/18 12:49 Inderal Injection IV 04/11/18 12:34 2 mg ONCE ONE Administration - Hospital Course Intrapartum: 04/11/18 00:18 Pt doing ok - relatively comf with ADRIÁN....Got ADRIÁN for urethral irritation. Had very difficult insertion with terrible pain even with lidocaine injection - got hypotension and emesis. resting now. has mild MCCRAY and just had nausea and emesis. hot with magnesium. happy about plts. 04/11/18 03:00 Pt uncomfortable with feeling more pressure. Irritated by many body symptoms / catheter/ pulse ox etc. Will push bolus button. denies MCCRAY, nausea after lying for exam. cx now 3-4/95/0 station. nieves bulb pushed above head 04/11/18 06:07 Pt doing ok - sleeping after Zofran and ADRIÁN boluses. Ctxns hard to monitor on 22 pit - placed IUPC - ctxns inadeq. Cx minimal change 3-4/100/0. fluid still clear fluid. good UOP, no MCCRAY 04/11/18 08:33 patient comfortable. does not tolerate exams well and flinches with touching leg. has nausea. iupc in place. pitocin is at 30,. bp stable. will continue close observation. will stop pit to see if it will be more receptive to pitocin after a break. low urine output. will give fluid bolus 250 cc. 04/11/18 11:23 pitocin was off for an hour and a half. contractions completely stopped. pitocin restarted at 15 mu. status reassuring. urine output has improved. discussed rationale for stopping pit and restarting with patient and her . discussed importance of change positions. discussed risks of post hemorrhage with prolonged high dose pitocin and magnesium. discussed indications for c section. patient declines c section now. will continue close observation. 04/11/18 15:56 patient resting. prior note about delivery was written on the wrong patient. patient was given propranolol and pitocin is at 28. sve 4/80/0. contractions had been regular but have spaced out again. discussed proceeding with c section if no cervical change in the next few hours 04/11/18 19:48 patient has not changed her cervix. long discussion with patient and her about next steps. discussed increased risk of pp hemorrhage and being out of options for getting adequate contractions. agreeable to proceeding with pltcs. pitocin off. anesthesia notified. status reassuring. due to another patient needing a c section at this time we will just continue close observation until we are finished and then proceed with c section. 04/11/18 22:34 patient is being transported back to the OR for delivery. status is reassuring. Indications for Delivery: Preeclampsia Severe Vaginal Delivery - Labor and Delivery Onset of Contractions Date: 04/10/18 Onset of Contractions Time: 23:45 Rupture of Membranes Date: 04/10/18 Rupture of Membranes Time: 23:45 Amniotic Fluid Color: Clear Non-surgical Procedures: Amniotomy Operative Report - Delivery Pre-op Diagnoses: IUP 39 1/7 weeks, severe preeclampsia, arrest of dilation Post-op Diagnoses: same as pre op plus occiput posterior History of Prior Section: No Nulliparous Prior to Delivery: Yes Indications for Current Section: Arrest of Dilation Procedure: Unscheduled, Low Transverse Surgeon: Margaret Iyer Jowl Trimmer: Luana Baldwin Anesthesiologist: Ciara Segura EBL: [address] Data JUAN MANUEL: 04/17/18 Gestational Age: 39 week(s) and 1 day(s) [place] Delivery Date: 04/11/18 Delivery Time: 23:04 Sex of : Female Score (1 Min): 8 Score (5 Min): 9 ICD10 Worksheet Patient Problems: Problems Problem Status Onset Pre-eclampsia, severe Acute
[2018-04-11] MEDS ORDERED: SIMETHICONE 80 MG TAB CHEW PO PRN (23:46)
[2018-04-11] MEDS ORDERED: BISACODYL 10 MG SUPP PR PRN (23:46)
[2018-04-11] MEDS ORDERED: POLYETHYLENE GLYCOL 3350 17 GM PKT PO PRN (23:46)
[2018-04-11] MEDS ORDERED: LACTULOSE 20 GM/30 ML UDCUP PO PRN (23:46)
[2018-04-11] MEDS ORDERED: DOCUSATE SODIUM 100 MG CAP PO PRN (23:46)
[2018-04-11] MEDS ORDERED: MAGNESIUM HYDROXIDE 30 ML UDCUP PO PRN (23:46)
[2018-04-12] MEDS ORDERED: fentaNYL 100 MCG/2 ML INJ ONE (01:02)
[2018-04-12] MEDS ORDERED: ETOMIDATE 20 MG/10 ML VIAL ONE (01:24)
[2018-04-12] MEDS ORDERED: CEFAZOLIN 2 GM/DEXTROSE/100 ML BAG IV ONE (01:25)
[2018-04-12] MEDS ORDERED: DIPHENOXYLATE/ATROPINE LOMOTIL 1 TAB ONE (01:54)
[2018-04-12] MEDS ORDERED: ONDANSETRON 4 MG/2 ML VIAL ONE (02:11)
[2018-04-12 02:12] LABS: PLATELET COUNT 95 10^3/uL (150-400)
[2018-04-12 02:16] LABS: PLATELET COUNT 95 10^3/uL (150-400)
[2018-04-12 02:21] LABS: INR 1.53 (0.83-1.16); PROTIME(PATIENT) 18.5 SEC (12.0-15.0)
[2018-04-12] MEDS ORDERED: TRANEXAMIC ACID 1,000 MG in NS 100 ML IV ONE (02:33)
[2018-04-12] MEDS ORDERED: DIPHENOXYLATE/ATROPINE LOMOTIL 1 TAB PO ONE (02:49)
[2018-04-12] MEDS: KETOROLAC 30 MG/1 ML SDV IVP SCH ×5 (03:16→23:41)
[2018-04-12] MEDS: ACETAMINOPHEN 325 MG TAB PO SCH ×3 (03:25→18:14)
[2018-04-12] MEDS: IBUPROFEN 600 MG TAB PO SCH ×3 (05:59→19:18)
[2018-04-12] MEDS: MISOPROSTOL 200 MCG TAB PO SCH ×4 (06:17→22:37)
[2018-04-12] MEDS ORDERED: MAGNESIUM SULF 4 GM/WATER 100 ML BAG IV ONE (07:50)
--- NOTE | 2018-04-12 09:11 | GOP ---
DATE OF OPERATION: 04/11/2018 SURGEON: Margaret Iyer DO PREOPERATIVE DIAGNOSIS: 1. Intrauterine at 39 and 1/7 weeks gestation. 2. Severe preeclampsia. 3. Arrest of dilation and inability to obtain adequate contractions. POSTOPERATIVE DIAGNOSIS: 1. Intrauterine at 39 and 1/7 weeks gestation. 2. Severe preeclampsia. 3. Arrest of dilation and inability to obtain adequate contractions. 4. Occiput posterior. PROCEDURE PERFORMED: FINDINGS: INDICATIONS: Patient is a 22-year-old 1, para 0, who is 39 weeks' gestation, who was diagnos ed with severe preeclampsia. Patient was started on magnesium sulfate and was 1-2 cm dilated. She w as started on Pitocin for induction of labor. The patient has progressed into labor with a dilation of 3-4 cm. Membranes were artificially ruptured, clear fluid was noted and the uterine pressure cath eter was placed without difficulty. We continued to increase the Pitocin to a maximum of 30 milliuni ts and patient was still not having adequate contractions per IUPC, but she was having regular contra ctions to the point of needing to have an epidural. We decided to discontinue her Pitocin for an antonella r and a half and Pitocin was then restarted to see if contractions would be stronger and more adequat e. She was also given 2 mg of IV propranolol to help facilitate this. We got back up to 30 milliuni ts of Pitocin and despite having 30 milliunits Pitocin for several hours for a 2nd time she did not h ave adequate contractions despite patient feeling discomfort and breathing through her epidural. Her cervix did not change past 4 cm. A long discussion was had with the patient and the father of the navdeep danielle about management options. Decision was made to proceed with a primary low-transverse se ction. Risks and benefits of the procedure were reviewed with the patient and patient was properly c onsented. DESCRIPTION OF PROCEDURE: Patient was taken to the operating room with intravenous fluids in place. A Trotter catheter was already in place. Venodyne's were on her lower extremities. She was then plac ed on the operating room table where her epidural was bolused. She was then prepped and draped in th e normal sterile fashion. Anesthesia was assessed and found to be adequate with the exception of a s mall area up just to the left of her umbilicus. We waited and the area of pain did decrease. A Pfan nenstiel skin incision was then made 2 fingerbreadths above the pubic symphysis. The incision was th en carried through to the underlying layer of fascia with the Bovie. The fascia was then nicked in t he midline and the fascial incision was extended laterally. The superior aspect of the fascial incis ion was then grasped with a Steve, tented up, and the underlying rectus muscle dissected off bluntly with the Bovie. Attention was then turned to the inferior aspect of the fascial incision, which in a similar fashion was grasped with a Steve, tented up, and the underlying rectus muscle dissected of f bluntly with the Bovie. The rectus muscle was then in the midline. The peritoneum was t hen identified, tented up, and entered sharply with the Metzenbaum scissors. The incision was extend ed superiorly and inferiorly with excellent visualization of the bladder. The bladder blade was then inserted. The vesicouterine peritoneum was then identified, tented up, and entered sharply with the Metzenbaum scissors. The incision was extended laterally and the bladder flap was created digitally . The bladder blade was then reinserted and the uterus was then incised in a low-transverse fashion with a scalpel. The uterine incision was extended laterally. The infant's head was delivered throug h the incision. The was noted to be in the occiput posterior presentation. The remainder of the viable was then delivered without difficulty. Delayed cord clamping x1 minute was perform ed. The cord was then clamped x2 and cut and the infant was handed off to awaiting nurse pr actitioner. Intact placenta with 3-vessel cord delivered without difficulty. The uterus was then ex teriorized and cleared of all clots and debris and wrapped in a moist laparotomy sponge. The bladder blade was then reinserted. The hysterotomy was then closed with 0 Vicryl in a running, locked fashi on. A 2nd 0 Vicryl stitch was used to imbricate the uterine incision. Ovaries, uterus and tubes wer e unremarkable. Hysterotomy remained hemostatic. The patient did receive some sedation following de livery of the baby due to continued complaints of pain in her arm and her vagina and other areas thro ughout her body. Peritoneum was then grasped with hemostats and closed with 3-0 Vicryl in a running fashion. Rectus muscles were reapproximated with 2-0 Vicryl in a running fashion. Fascia was closed with 0 Vicryl in a running fashion. Halley's tissue was reapproximated with 2-0 Vicryl in a running fashion. Subcuticular tissue was closed with 3-0 Vicryl in a running fashion and Steri-Strips were applied to the incision. Sponge, lap, and needle count were correct x2. The patient was transported to recovery room in stable condition. /[id number]/MODL
--- NOTE | 2018-04-12 09:26 | GOP ---
DATE OF OPERATION: 04/12/2018 SURGEON: Margaret Iyer DO HAND HEEL SEAT FITTER: Kassie Shea MD. PREOPERATIVE DIAGNOSIS: Post section bleeding. POSTOPERATIVE DIAGNOSIS: Post section bleeding. PROCEDURE PERFORMED: Exploratory laparotomy and a vaginal and pelvic exam under anesthesia. FINDINGS: Normal postop abdomen, dilated cervix. ESTIMATED BLOOD LOSS: 300 cc. INDICATIONS: The patient is a 22-year-old, 1, para 1-0-0-1, who underwent a section in the evening of 04/11/2018. Surgery was uncomplicated and bleeding was minimal during the surgery . The patient had been on high doses of Pitocin throughout the day as well as magnesium sulfate for severe preeclampsia. The patient was in the recovery room and began passing clots and having a large amount of vaginal bleeding. Her fundus was overall quite firm. However, her lower uterine segment and cervix appeared to be dilated. We gave her some rectal Cytotec and IM Pitocin in the PACU, but b leeding continued and patient was becoming hypotensive, so decision was made to take the patient to [facility] operating room for exploratory laparotomy. DESCRIPTION OF PROCEDURE: Patient was taken to the operating room. She was given 2 g of Ancef intra venously. She was then placed on the operating room table where general anesthesia was obtained with endotracheal tube. She was then repositioned in the dorsal supine position and prepped and draped i n the normal sterile fashion. The incision that had been closed with a subcuticular layer was taken down with Metzenbaum scissors as well as Halley's fascia. No excessive bleeding was noted. The rect us muscle that had been reapproximated was opened up as well as the peritoneum. The uterus was exter iorized. The abdomen had minimal bleeding in it. The hysterotomy remained hemostatic. The ovaries, uterus and tubes were unremarkable. The uterus had good tone. No obvious causes of bleeding or standing rock rine atony were noted at that time. Dr. Shea did scrub out and evaluate the patient vaginally. The re was a moderate amount of vaginal bleeding that was occurring. No obvious source of that was able to be identified. She scrubbed back in and we closed the layers that had been closed previously doirenee g the . Did not close peritoneum at this time and rectus muscle was reapproximated with an 0 Vicryl [id number] stitch. The fascia was closed with 0 Vicryl in a running fashion. Halley's tissue was reapproximated with 2-0 Vicryl in a running fashion. Subcuticular tissue was closed with 3-0 Vicryl in a running subcuticular fashion. Steri-Strips were applied to the incision. The incis ion was covered and the bed was then broken down and a speculum exam was performed. The cervix was n oted to be somewhat floppy. There were some clots in the vagina, but a scant amount of vaginal bleed ing was noted. An exam of top was again performed and the fundus was noted to be firm. The cervix w as noted to be dilated, but no active bleeding was noted. Decision was made at that time to give pat ient a dose of tranexamic acid and continue, and a dose of Hemabate to ensure good uterine tone and t o follow with close observation. DIC panel was obtained and overall was unremarkable. The patient w as transferred to recovery room in stable condition. /[id number]/MODL
[2018-04-12 10:07] LABS: PLATELET COUNT 111 10^3/uL (150-400)
--- NOTE | 2018-04-12 11:13 | OBPP ---
Progress Note Assessment/Plan: Assessment: pod# 1 s/p PLTCS for arrest of dilation severe pih - on mag - labs stable breast feeding anemia - iron Plan: 04/12/18 11:11 Subjective/ Course: 04/12/18 11:12 patient is doing well overall. feels slighlty better than last night. pain is controlled. minimal vaginal bleeding. working on breast feeding. discussed surgery with c section and ex lap post c section. denies headache or changes in vision. nieves still in. Objective: 04/12/18 09:15 04/12/18 09:15 Patient ABO/Rh O POSITIVE 04/10/18 13:35 Uric Acid 7.2 mg/dL (2.5-6.8) H 04/12/18 09:15 Total Bilirubin 0.4 mg/dL (0.1-1.4) 04/11/18 12:10 Conjugated Bilirubin 0.2 mg/dL (0.0-0.5) 04/11/18 12:10 Unconjugated Bilirubin 0.2 mg/dL (0.0-1.1) 04/11/18 12:10 AST 47 IU/L (14-46) H 04/12/18 09:15 ALT 31 IU/L (9-52) 04/12/18 09:15 Lactate Dehydrogenase 1443 IU/L (313-618) H 04/12/18 09:15 Temp Pulse Resp BP Pulse Ox 37.7 C 96 21 H 138/76 H 100 04/12/18 03:35 04/11/18 19:01 04/12/18 04:10 04/12/18 04:08 04/12/18 04:10 Physical Exam - Physical Exam Neck: non-tender, full range of motion, supple Respiratory: chest non-tender, lungs clear, normal breath sounds Cardiac/Chest: normal peripheral pulses, regular rate, rhythm Abdomen: normal bowel sounds, non-tender, other (fundus firm and non tender) Extremities: normal range of motion, non-tender, normal inspection, normal capillary refill Skin: normal color, warm/dry Neuro/Psych: no motor/sensory deficits, alert, normal mood/affect, oriented x 3
[2018-04-12] MEDS: SENNOSIDES/DOCUSATE SODIUM TAB PO SCH (11:29)
--- NOTE | 2018-04-12 13:12 | OBPP ---
Progress Note Assessment/Plan: Assessment: 22 y/o POD #0 s/p LTCS secondary to arrest of dilation and severe pre eclampsia , with PP hemorrhage and re exploration Plan: No further evidence of bleeding and vital signs have improved. Her UOP is adequate but she has not diuresed yet, will continue MgSo4 for at least 24 hours post delivery. Started Toradol for pain control and will observe UOP closely. Clear liquids as tolerated. 04/12/18 13:05 Subjective/ Course: 04/12/18 11:12 patient is doing well overall. feels slighlty better than last night. pain is controlled. minimal vaginal bleeding. working on breast feeding. discussed surgery with c section and ex lap post c section. denies headache or changes in vision. nieves still in. 04/12/18 13:03 Pt continues to slowly improve. She reports good pain control now except when moving or coughing. She denies nausea, and is tolerating clear liquids. Denies MCCRAY, scotomata. They have tried breast feeding baby is sleepy, support to work on latch. Objective: 04/12/18 09:15 04/12/18 09:15 Patient ABO/Rh O POSITIVE 04/10/18 13:35 Uric Acid 7.2 mg/dL (2.5-6.8) H 04/12/18 09:15 Total Bilirubin 0.4 mg/dL (0.1-1.4) 04/11/18 12:10 Conjugated Bilirubin 0.2 mg/dL (0.0-0.5) 04/11/18 12:10 Unconjugated Bilirubin 0.2 mg/dL (0.0-1.1) 04/11/18 12:10 AST 47 IU/L (14-46) H 04/12/18 09:15 ALT 31 IU/L (9-52) 04/12/18 09:15 Lactate Dehydrogenase 1443 IU/L (313-618) H 04/12/18 09:15 Temp Pulse Resp BP Pulse Ox 37.7 C 96 21 H 138/76 H 100 04/12/18 03:35 04/11/18 19:01 04/12/18 04:10 04/12/18 04:08 04/12/18 04:10 Uterine Position/Fundal Height: Umbilicus -2 Uterine Tone: Firm Physical Exam - Physical Exam General Appearance: alert, no apparent distress, other (pale appearing) Neck: non-tender, full range of motion, supple Respiratory: chest non-tender, lungs clear, normal breath sounds Cardiac/Chest: regular rate, rhythm Abdomen: hypoactive bowel sounds, dressing (c/d/i) Extremities: swelling (tr), Reny's sign (neg)
--- NOTE | 2018-04-12 17:33 | SOAPPROG ---
SOAP Progress Note Assessment/Plan: Assessment: Comforatable s/p Plan: 04/12/18 17:31 Subjective: Patient Resting Comfortably Objective: Vital Signs Temp Pulse Resp BP Pulse Ox 37.7 C 96 21 H 138/76 H 100 04/12/18 03:35 04/11/18 19:01 04/12/18 04:10 04/12/18 04:08 04/12/18 04:10 Laboratory Results 04/12/18 09:15 04/12/18 09:15 04/11/18 04/12/18 04/13/18 05:59 05:59 05:59 Intake Total 380 50 Output Total 115 1879 Balance 265 -1829 PT 18.5 SEC (12.0-15.0) H 04/12/18 02:09 INR 1.53 (0.83-1.16) H 04/12/18 02:09 No complaints of MCCRAY or back pain - Time Spent With Patient Time Spent With Patient: 10 minutes ICD10 Worksheet Patient Problems: Problems Problem Status Onset Pre-eclampsia, severe Acute
[2018-04-13] MEDS: FERRO-SEQUELS 65 MG TAB.ER PO SCH ×3 (01:01→20:47)
[2018-04-13] MEDS: ACETAMINOPHEN 325 MG TAB PO SCH ×4 (01:01→17:59)
[2018-04-13] MEDS: IBUPROFEN 600 MG TAB PO SCH ×4 (02:22→17:59)
[2018-04-13] MEDS: SENNOSIDES/DOCUSATE SODIUM TAB PO SCH ×3 (02:24→20:47)
[2018-04-13] MEDS: KETOROLAC 30 MG/1 ML SDV IVP SCH (05:50)
--- NOTE | 2018-04-13 11:41 | OBPP ---
Progress Note Assessment/Plan: Assessment: 22 y/o POD #1 s/p LTCS secondary to arrest of dilation and severe pre eclampsia , with PP hemorrhage and re exploration Plan: BP are stable today. Pt is doing well. Will observe closely, no evidence of ongoing bleeding and BP stable off MgSo4 for now. Routine POC and support. 04/12/18 13:05 04/13/18 11:36 Subjective/ Course: 04/12/18 11:12 patient is doing well overall. feels slighlty better than last night. pain is controlled. minimal vaginal bleeding. working on breast feeding. discussed surgery with c section and ex lap post c section. denies headache or changes in vision. nieves still in. 04/12/18 13:03 Pt continues to slowly improve. She reports good pain control now except when moving or coughing. She denies nausea, and is tolerating clear liquids. Denies MCCRAY, scotomata. They have tried breast feeding baby is sleepy, support to work on latch. 04/13/18 11:34 Pt is doing well. She just got out of the shower and felt good. She has good pain control with po meds. No n/v, sadia reg diet. Ambulating and voiding well. She is working on breast feeding and baby is doing well. Objective: 04/12/18 09:15 04/12/18 09:15 Patient ABO/Rh O POSITIVE 04/10/18 13:35 Uric Acid 7.2 mg/dL (2.5-6.8) H 04/12/18 09:15 Total Bilirubin 0.4 mg/dL (0.1-1.4) 04/11/18 12:10 Conjugated Bilirubin 0.2 mg/dL (0.0-0.5) 04/11/18 12:10 Unconjugated Bilirubin 0.2 mg/dL (0.0-1.1) 04/11/18 12:10 AST 47 IU/L (14-46) H 04/12/18 09:15 ALT 31 IU/L (9-52) 04/12/18 09:15 Lactate Dehydrogenase 1443 IU/L (313-618) H 04/12/18 09:15 Temp Pulse Resp BP Pulse Ox 36.8 C 87 16 115/58 L 100 04/13/18 09:20 04/13/18 09:20 04/13/18 09:20 04/13/18 09:20 04/12/18 04:10 Uterine Position/Fundal Height: Umbilicus -2 Uterine Tone: Firm Physical Exam - Physical Exam General Appearance: alert, no apparent distress Neck: non-tender, full range of motion, supple Respiratory: chest non-tender, lungs clear, normal breath sounds Cardiac/Chest: regular rate, rhythm Abdomen: normal bowel sounds, incision (c/d/i) Extremities: swelling (no), Reny's sign (neg)
[2018-04-13] MEDS: HYDROCODONE/APAP 5/325 TAB PO PRN (13:52)
[2018-04-14] MEDS: ACETAMINOPHEN 325 MG TAB PO SCH ×4 (06:21→23:05)
[2018-04-14] MEDS: HYDROCODONE/APAP 5/325 TAB PO PRN ×4 (06:36→21:32)
[2018-04-14] MEDS: IBUPROFEN 600 MG TAB PO SCH ×4 (06:37→21:32)
[2018-04-14] MEDS: SENNOSIDES/DOCUSATE SODIUM TAB PO SCH ×2 (09:03→21:32)
[2018-04-14] MEDS: FERRO-SEQUELS 65 MG TAB.ER PO SCH ×2 (09:03→21:33)
--- NOTE | 2018-04-14 11:45 | OBPP ---
Progress Note Assessment/Plan: Assessment: 22 y/o POD #2 s/p LTCS secondary to arrest of dilation and severe pre eclampsia , with PP hemorrhage and re exploration Plan: BP continue to be stable now off MgSo4. She is tolerating iron, reg diet and po pain meds. Working with to supplement, pump to encourage milk to come in. 04/12/18 13:05 04/13/18 11:36 04/14/18 11:43 Subjective/ Course: 04/12/18 11:12 patient is doing well overall. feels slighlty better than last night. pain is controlled. minimal vaginal bleeding. working on breast feeding. discussed surgery with c section and ex lap post c section. denies headache or changes in vision. nieves still in. 04/12/18 13:03 Pt continues to slowly improve. She reports good pain control now except when moving or coughing. She denies nausea, and is tolerating clear liquids. Denies MCCRAY, scotomata. They have tried breast feeding baby is sleepy, support to work on latch. 04/13/18 11:34 Pt is doing well. She just got out of the shower and felt good. She has good pain control with po meds. No n/v, sadia reg diet. Ambulating and voiding well. She is working on breast feeding and baby is doing well. 04/14/18 11:41 Pt is doing well this am. She has good pain control on po meds. She is ambulating and voiding and had + BM yesterday. Min lochia. They are working on breast feeding and struggling with baby's weight loss, began supplementing today. She is working with . Objective: 04/12/18 09:15 04/12/18 09:15 Patient ABO/Rh O POSITIVE 04/10/18 13:35 Uric Acid 7.2 mg/dL (2.5-6.8) H 04/12/18 09:15 Total Bilirubin 0.4 mg/dL (0.1-1.4) 04/11/18 12:10 Conjugated Bilirubin 0.2 mg/dL (0.0-0.5) 04/11/18 12:10 Unconjugated Bilirubin 0.2 mg/dL (0.0-1.1) 04/11/18 12:10 AST 47 IU/L (14-46) H 04/12/18 09:15 ALT 31 IU/L (9-52) 04/12/18 09:15 Lactate Dehydrogenase 1443 IU/L (313-618) H 04/12/18 09:15 Temp Pulse Resp BP Pulse Ox 36.2 C 72 16 136/71 H 92 04/14/18 08:45 04/14/18 08:45 04/14/18 08:45 04/14/18 08:45 04/14/18 08:45 Uterine Position/Fundal Height: Umbilicus -3 Uterine Tone: Firm Physical Exam - Physical Exam General Appearance: alert, no apparent distress Neck: non-tender, full range of motion, supple Respiratory: chest non-tender, lungs clear, normal breath sounds Cardiac/Chest: regular rate, rhythm Abdomen: normal bowel sounds, incision (c/d/i) Extremities: swelling (no), Reny's sign (neg)
[2018-04-15] MEDS: HYDROCODONE/APAP 5/325 TAB PO PRN ×3 (02:28→10:58)
[2018-04-15] MEDS: IBUPROFEN 600 MG TAB PO SCH ×3 (06:20→15:39)
[2018-04-15] MEDS: ACETAMINOPHEN 325 MG TAB PO SCH ×2 (06:33→15:38)
[2018-04-15 09:26] VITALS: BP 126/73
[2018-04-15] MEDS: FERRO-SEQUELS 65 MG TAB.ER PO SCH (09:39)
[2018-04-15] MEDS: SENNOSIDES/DOCUSATE SODIUM TAB PO SCH (09:39)
[2018-04-15] MEDS ORDERED: oxyCODONE IR 5 MG TAB PO PRN (11:01)
--- NOTE | 2018-04-15 11:10 | OBPP ---
Progress Note Assessment/Plan: Assessment: POD 3 s/p primary c/s for arrest of labor and severe preeclampsia on magnesium b/p much improved UOP good and has had BM Plan: D/C home, iron for anemia 04/11/18 00:04 04/11/18 02:58 04/11/18 06:05 04/15/18 11:07 Subjective/ Course: 04/12/18 11:12 patient is doing well overall. feels slighlty better than last night. pain is controlled. minimal vaginal bleeding. working on breast feeding. discussed surgery with c section and ex lap post c section. denies headache or changes in vision. nieves still in. 04/12/18 13:03 Pt continues to slowly improve. She reports good pain control now except when moving or coughing. She denies nausea, and is tolerating clear liquids. Denies MCCRAY, scotomata. They have tried breast feeding baby is sleepy, support to work on latch. 04/13/18 11:34 Pt is doing well. She just got out of the shower and felt good. She has good pain control with po meds. No n/v, sadia reg diet. Ambulating and voiding well. She is working on breast feeding and baby is doing well. 04/14/18 11:41 Pt is doing well this am. She has good pain control on po meds. She is ambulating and voiding and had + BM yesterday. Min lochia. They are working on breast feeding and struggling with baby's weight loss, began supplementing today. She is working with . 04/15/18 11:08 Pt doing much better. Happy to be off magnesium. Urinating fine. had BM. pain controlled with 1 norco q 4 hrs and ibu. bld is light. not dizzy and sadia reg diet. Ready for d/c Objective: 04/12/18 09:15 04/12/18 09:15 Patient ABO/Rh O POSITIVE 04/10/18 13:35 Uric Acid 7.2 mg/dL (2.5-6.8) H 04/12/18 09:15 Total Bilirubin 0.4 mg/dL (0.1-1.4) 04/11/18 12:10 Conjugated Bilirubin 0.2 mg/dL (0.0-0.5) 04/11/18 12:10 Unconjugated Bilirubin 0.2 mg/dL (0.0-1.1) 04/11/18 12:10 AST 47 IU/L (14-46) H 04/12/18 09:15 ALT 31 IU/L (9-52) 04/12/18 09:15 Lactate Dehydrogenase 1443 IU/L (313-618) H 04/12/18 09:15 Temp Pulse Resp BP Pulse Ox 36.9 C 97 17 126/73 H 94 04/15/18 08:00 04/15/18 08:00 04/15/18 08:00 04/15/18 08:00 04/15/18 08:00 Uterine Position/Fundal Height: Umbilicus -2 Uterine Tone: Firm Physical Exam - Physical Exam Abdomen: non-tender (approp post op tender), soft, incision (CDI, intact with steristrips), other (normal lochia) Extremities: non-tender, pedal edema (minimal) Skin: normal color, warm/dry Neuro/Psych: no motor/sensory deficits, alert, normal mood/affect
--- NOTE | 2018-04-15 11:13 | OBGCSDC ---
General Delivery Information - General Info : 1 Para: 1 Abortions: 0 Type: Primary L&D Analgesia/Anesthesia Type: Epidural, General, IV Narcotics Admission Date: 04/10/18 Labs: Patient ABO/Rh O POSITIVE 04/10/18 13:35 Hct 27.9 % (38.0-47.0) L 04/12/18 09:15 - Hospital Course Antepartum: 04/11/18 00:29 uncomplicated until 04/07 with borderline b/p elevation with labs normal except plts 106 Intrapartum: 04/11/18 00:18 Pt doing ok - relatively comf with ADRIÁN....Got ADRIÁN for urethral irritation. Had very difficult insertion with terrible pain even with lidocaine injection - got hypotension and emesis. resting now. has mild MCCRAY and just had nausea and emesis. hot with magnesium. happy about plts. 04/11/18 03:00 Pt uncomfortable with feeling more pressure. Irritated by many body symptoms / catheter/ pulse ox etc. Will push bolus button. denies MCCRAY, nausea after lying for exam. cx now 3-4/95/0 station. nieves bulb pushed above head 04/11/18 06:07 Pt doing ok - sleeping after Zofran and ADRIÁN boluses. Ctxns hard to monitor on 22 pit - placed IUPC - ctxns inadeq. Cx minimal change 3-4/100/0. fluid still clear fluid. good UOP, no MCCRAY 04/11/18 08:33 patient comfortable. does not tolerate exams well and flinches with touching leg. has nausea. iupc in place. pitocin is at 30,. bp stable. will continue close observation. will stop pit to see if it will be more receptive to pitocin after a break. low urine output. will give fluid bolus 250 cc. 04/11/18 11:23 pitocin was off for an hour and a half. contractions completely stopped. pitocin restarted at 15 mu. status reassuring. urine output has improved. discussed rationale for stopping pit and restarting with patient and her . discussed importance of change positions. discussed risks of post hemorrhage with prolonged high dose pitocin and magnesium. discussed indications for c section. patient declines c section now. will continue close observation. 04/11/18 15:56 patient resting. prior note about delivery was written on the wrong patient. patient was given propranolol and pitocin is at 28. sve 4/80/0. contractions had been regular but have spaced out again. discussed proceeding with c section if no cervical change in the next few hours 04/11/18 19:48 patient has not changed her cervix. long discussion with patient and her about next steps. discussed increased risk of pp hemorrhage and being out of options for getting adequate contractions. agreeable to proceeding with pltcs. pitocin off. anesthesia notified. status reassuring. due to another patient needing a c section at this time we will just continue close observation until we are finished and then proceed with c section. 04/11/18 22:34 patient is being transported back to the OR for delivery. status is reassuring. : 04/12/18 11:12 patient is doing well overall. feels slighlty better than last night. pain is controlled. minimal vaginal bleeding. working on breast feeding. discussed surgery with c section and ex lap post c section. denies headache or changes in vision. nieves still in. 04/12/18 13:03 Pt continues to slowly improve. She reports good pain control now except when moving or coughing. She denies nausea, and is tolerating clear liquids. Denies MCCRAY, scotomata. They have tried breast feeding baby is sleepy, support to work on latch. 04/13/18 11:34 Pt is doing well. She just got out of the shower and felt good. She has good pain control with po meds. No n/v, sadia reg diet. Ambulating and voiding well. She is working on breast feeding and baby is doing well. 04/14/18 11:41 Pt is doing well this am. She has good pain control on po meds. She is ambulating and voiding and had + BM yesterday. Min lochia. They are working on breast feeding and struggling with baby's weight loss, began supplementing today. She is working with . 04/15/18 11:08 Pt doing much better. Happy to be off magnesium. Urinating fine. had BM. pain controlled with 1 norco q 4 hrs and ibu. bld is light. not dizzy and sadia reg diet. Ready for d/c Vaginal - Diagnosis Amniotic Fluid Color: Clear - Procedures Non-surgical Procedures: Amniotomy - Delivery Providers Surgeon: Margaret Iyer Mercantile Agent: Luana Baldwin Anesthesiologist: Ciara Segura - Delivery Number of Prior Sections: 0 Indications for Current Section: Arrest of Dilation Non-surgical Procedures: Amniotomy Surgical Procedures: Unscheduled, Low Transverse EBL: 600 Data JUAN MANUEL: 04/17/18 Gestational Age: 39 week(s) and 5 day(s) [place] Delivery Date: 04/11/18 Delivery Time: 20:34 Sex of : Female [place] Weight (gm): 2820 g Score (1 Min): 8 Score (5 Min): 9 Discharge Information - Discharge Information Prescriptions: oxyCODONE IR [Oxycodone Ir (*)] 5 - 10 mg PO Q4HRS PRN #24 tab PRN Reason: Pain, Severe Able To Take Po Condition: Good Instruction/Follow Up: See Instruction Sheet, One Week (for b/p check), Two Weeks (incision check), Six Weeks
== END 2018-04-15 15:39 | disposition home or self-care (01) | DRG 787 ==
LOC: FLD 11:55 → OBSVTOIN 11:55 → FOB 04-13 10:27
PROVIDERS: ADMIT Obstetrics & Gynecology; ATTEND Obstetrics & Gynecology
DX: O62.0 Primary inadequate contractions (principal); O62.2 Other uterine inertia; O72.1 Other immediate postpartum hemorrhage; O32.8XX0 Maternal care for other malpresentation of fetus, not applicable or unspecified; O14.14 Severe pre-eclampsia complicating childbirth; N36.8 Other specified disorders of urethra; O99.013 Anemia complicating pregnancy, third trimester; Z37.0 Single live birth; Z3A.39 39 weeks gestation of pregnancy
CPT/HCPCS: J0360; J0610; J0690; J0735; J1800; J1885; J2210; J2250; J2270; J2274; J2370; J2405; J2590; J3010; J3105; J3475

== ENCOUNTER 2018-09-13 21:24 | Emergency (ER) | payer OTHER ==
[2018-09-13] MEDS ORDERED: KETOROLAC 15 MG/1 ML SDV IVP ONE (21:39)
[2018-09-13] MEDS ORDERED: NS 1,000 ML IV ONE (21:39)
--- NOTE | 2018-09-13 21:43 | EDPHY ---
H & P Stated Complaint: lower abdominal pain that started this am Time Seen by Provider: 09/13/18 21:31 HPI/ROS: Chief Complaint: Left lower abdominal pain HPI: 22-year-old presenting with left lower quadrant abdominal pain which began a about 5:00 this afternoon. Pain is been getting progressively worse. Currently an 8/10. Does not have a history of similar pain in the past. She is 5 months from a . She did have 1 menstrual cycle 2 months ago. She stopped breast-feeding about 1 month ago. Does not believe she is . No vaginal discharge or bleeding. No urinary urgency or frequency. No nausea, vomiting, diarrhea, or constipation. No fevers or chills. There are no aggravating or alleviating factors. ROS: 10 systems were reviewed and were negative except those elements noted in the HPI. PMH: Denies Social History: No smoking, no alcohol, no recreational drug use Family History: non-contributory Physical Exam: Gen: Awake, Alert, No Distress HEENT: Nose: no rhinorrhea Eyes: PERRLA, EOMI Mouth: Moist mucosa Neck: Supple, no JVD Chest: nontender, lungs clear to auscultation Heart: S1, S2 normal, no murmur Abd: Soft, moderate tenderness in the left adnexa, no guarding, mild right adnexal tenderness. No uterine tenderness. Back: no CVA tenderness, no midline tenderness Ext: no edema, non-tender Skin: no rash Neuro: CN II-XII intact, Sensation grossly intact, Strength 5/5 in bilateral upper and lower extremities - Personal History LMP (Females 10-55): Irregular Current Tetanus Diphtheria and Acellular Pertussis (TDAP): Yes - Medical/Surgical History Hx Asthma: No Hx Chronic Respiratory Disease: No Hx Diabetes: No Hx Cardiac Disease: No Hx Renal Disease: No Hx Cirrhosis: No Hx Alcoholism: No Hx HIV/AIDS: No Hx Splenectomy or Spleen Trauma: No Other PMH: l lumpectomy,pre ecclampsia - Social History Smoking Status: Former smoker Constitutional: Initial Vital Signs Temperature (C) 37.1 C 09/13/18 21:33 Heart Rate 78 09/13/18 21:33 Respiratory Rate 18 09/13/18 21:33 Blood Pressure 122/75 H 09/13/18 21:33 O2 Sat (%) 96 09/13/18 21:33 O2 Delivery Mode Room Air Allergies/Adverse Reactions: No Known Allergies Allergy (Verified 09/13/18 21:36) Home Medications: Medication Instructions Recorded Etonogestrel [Nexplanon] 09/13/18 Medical Decision Making ED Course/Re-evaluation: 22-year-old with left adnexal pelvic pain. Abdomen is soft and benign. CBC and chemistry are normal. I am awaiting a urinalysis and results. Also awaiting pelvic exam to rule out ovarian cyst or torsion. - Data Points Laboratory Results: 09/13/18 21:59 POC Sodium 139 mEq/L mEq/L (135-145) POC Potassium 3.3 mEq/L mEq/L (3.3-5.0) POC Chloride 106.0 mEq/L mEq/L (97-110) POC Total CO2 28 mEq/L mEq/L (22-31) POC BUN 10 mg/dL mg/dL (7-23) POC Creatinine 0.6 mg/dL mg/dL (0.6-1.0) POC Glucose 92 mg/dL mg/dL (70-100) POC Calcium 9.2 mg/dL mg/dL (8.5-10.4) Medications Given: Discontinued Medications Sodium Chloride (Ns) 1,000 mls @ 0 mls/hr IV ONCE ONE; Wide Open PRN Reason: Protocol Stop: 09/13/18 21:40 Last Admin: 09/13/18 21:53 Dose: 1,000 mls Ketorolac Tromethamine (Toradol) 15 mg IVP EDNOW ONE Stop: 09/13/18 21:40 Last Admin: 09/13/18 21:58 Dose: 15 mg Point of Care Test Results: CBC CBC Collection Date 09/13/18 CBC Collection Time 21:50 WBC 6.63 RBC 4.51 HGB 13.4 HCT 37.7 PLT 212 Neut # 3.60 Neut 54.3 LYMPH # 2.21 LYMPH 33.3 MCV 83.6 Chemistry 09/13/18 21:59 POC Sodium 139 mEq/L mEq/L (135-145) POC Potassium 3.3 mEq/L mEq/L (3.3-5.0) POC Chloride 106.0 mEq/L mEq/L (97-110) POC Total CO2 28 mEq/L mEq/L (22-31) POC BUN 10 mg/dL mg/dL (7-23) POC Creatinine 0.6 mg/dL mg/dL (0.6-1.0) POC Glucose 92 mg/dL mg/dL (70-100) POC Calcium 9.2 mg/dL mg/dL (8.5-10.4) Urine Collection Date 09/13/18 Collection Time 22:30 HCG Results Negative Urine Dip Collection Date 09/13/18 Collection Time 22:30 Specific [place] (1.002-1.030) 1.015 PH (5.0-7.5) 8.0 Leukocytes (Negative) Negative Nitrites (Negative) Negative Protein (Negative) Negative Glucose (Negative) Negative Ketones (Negative) Negative Urobilnogen (0.2-1.0 EU) 1.0 Bilirubin (Negative) Negative Blood (Negative) Negative Departure - Departure Disposition: Home, Routine, Self-Care Clinical Impression: Pelvic pain in female Condition: Good Instructions: Pelvic Pain (ED), Hydrocodone/Acetaminophen (By mouth) Additional Instructions: Take ibuprofen, 600 mg every 8 hr. You may alternate with acetaminophen, 1000 mg every 8 hr. For severe pain you may take hydrocodone with acetaminophen in place of the acetaminophen. Follow up with OBGYN in 2-3 days for further evaluation. Return to the emergency department for worsening pain, fevers or chills, uncontrolled nausea vomiting, or any other concerns. Referrals: Kassie Shea MD [Medical Doctor] - As per Instructions
[2018-09-13 22:35] VITALS: BP 121/74
[2018-09-13] MEDS ORDERED: HYDROCOD/APAP 5/325 PREPACK#6 BTL TAKEHOME ONE (23:40)
== END 2018-09-13 23:49 | disposition home or self-care (01) ==
LOC: CED 21:24
DX: R10.2 Pelvic and perineal pain (principal); E86.9 Volume depletion, unspecified
CPT/HCPCS: 76856-PO; 80048-ER; 81025-ER; 85025-QW-ER; 96361-ER; 96374-ER; 99285-ER